=== PATIENT | male | born 1990 | race Caucasian/White ===

== ENCOUNTER 2020-10-31 19:18 | Emergency (ER) | payer SELFPAY ==
[~2020-10-31] VITALS: Ht 190.5 cm; Wt 77.3 kg
[2020-10-31 19:22] VITALS: BP 134/85; Ht 190.5 cm; Wt 77.3 kg
== END 2020-10-31 19:40 | disposition left against medical advice (07) ==
LOC: D.ER 19:18
DX: F41.9 Anxiety disorder, unspecified (principal)